=== PATIENT | female | born 1990 | race Caucasian/White ===

== ENCOUNTER 2017-01-15 09:48 | Emergency (ER) | payer OTHER ==
--- NOTE | ~2017-01-15 | US98 ---
[facility] A Service of [facility] / [facility] RADIOLOGY TEXT RESULTS PATIENT: RADHA PATRICK LOCATION: SED : [birth year] UNIT #: [id number] AGE: [address]: Alvarez Jones MD SEX: F ORDER DR: [id number] [address] [address] [id number] MR#: [id number] Acc #: [id number] NAME: RADHA PATRICK : 1990 SEX: F STUDY DATE/TIME: 01/15/2017 11:27 UNIT: SED ROOM: STUDY DESCRIPTION: US Pelvic Non-OB Complete Attending Physician: Alvarez Jones M.D. Ordering Physician: Alvarez Jones M.D. Primary Care Physician: Primary Care Physician No MEDICAL IMAGING REPORT This report is preliminary unless electronic signature is present. EXAM Pelvic ultrasound, transabdominal and transvaginal technique, 01/15/2017 INDICATIONS Dyspareunia, left pelvic pain for a week. TECHNIQUE Sonographic imaging of the pelvis was performed transabdominally and then transvaginally for better evaluation of the adnexa and ovarian structures. No comparisons. FINDINGS TRANSABDOMINAL IMAGING: The uterus and both ovaries are visualized but better characterized transvaginally. Uterine dimensions are about 7.9 x 4.8 x 5.5 cm. Both ovaries demonstrate good flow at the time of the study. TRANSVAGINAL IMAGING: Endometrial stripe measures about 10 mm, in the normal range. No focal uterine mass identified. The left ovary measures up to 2.9 cm long axis and the right measures up to 3.7 cm. Follicles are present bilaterally. There is good flow documented in the ovaries bilaterally at the time of the study, no adnexal mass, free fluid or drainable fluid collection. IMPRESSION 1. Negative pelvic ultrasound. Dictated by... Irvin Rodrigues M.D. THIS IS AN ELECTRONICALLY VERIFIED REPORT Irvin Rodrigues M.D. at 01/16/2017 7:29 AM [facility] A Service of [facility] / [facility] RADIOLOGY TEXT RESULTS PATIENT: RADHA PATRICK LOCATION: SED : [birth year] UNIT #: [id number] AGE: [address]: Alvarez Jones MD SEX: F ORDER DR: KIRSTIE/timo TD: 01/15/2017 17:55 JOB #: [id number] MEDICAL IMAGING REPORT
[~2017-01-15 09:48] MED LIST: ALBUTEROL17 GM INH; BROMPHED DM PO; IRON256 MG PO; KEFLEX500 M1 PO; MOTRIN600 M2 PO; NO MEDICATIONS; VOLTAREN75 MG PO
[2017-01-15 10:28] LABS: URINE SOURCE CLEAN CATCH
[2017-01-15 10:30] LABS: MICRO INDICATED? NO; URINE APPEARANCE CLEAR; URINE BILIRUBIN NEG (NEG); URINE BLOOD NEG (NEG); URINE COLOR YELLOW; URINE GLUCOSE NEG (NORM); URINE KETONE NEG (NEG); URINE LEUKOCYTE ESTERASE NEG (NEG); URINE NITRATE NEG (NEG); URINE PH 5.5 (5-8); URINE PROTEIN 2+ (NEG); URINE SPECIFIC GRAVITY >=1.030 (1.003-1.035); URINE UROBILINOGEN 0.2 MG/DL (NORM)
[2017-01-18 15:09] LABS: CHLAMYDIA TRACH Not Detected (Not Detected); N GONOR Not Detected (Not Detected)
== END 2017-01-15 13:09 | disposition home or self-care (01) ==
LOC: SED 09:48
PROVIDERS: Emergency Medicine
DX: N83.202 Unspecified ovarian cyst, left side (principal); N72 Inflammatory disease of cervix uteri; Z98.51 Tubal ligation status; Z79.899 Other long term (current) drug therapy
CPT/HCPCS: 76830; 76856; 81003; 84703; 87491; 87591; 87808; 87905; 96372; 99284; J0696